=== PATIENT | female | born 1990 | race American Indian/Alaskan Native ===

== ENCOUNTER 2017-09-21 15:03 | Emergency (ER) | payer MEDICAID ==
[2017-09-21 15:04] VITALS: BMI 22.8
[2017-09-21] MEDS ORDERED: Sodium Chloride 0.9% 1,000 ML IV ONE (15:51)
--- NOTE | 2017-09-21 16:02 | C.PDOC ---
History Of Present Illness 26 y/o female currently presents to ED with c/o low abdominal "cramping" pain and vaginal bleeding "for awhile". Patient denies fever, chills , dysuria, back pain or any other complaints at this time. Time Seen by Provider: 09/21/17 15:47 Chief Complaint (Nursing): Female Genitourinary History Per: Patient History/Exam Limitations: no limitations Onset/Duration Of Symptoms: Days Current Symptoms Are (Timing): Still Present Quality Of Discomfort: Cramping Past Medical History Reviewed: Historical Data, Nursing Documentation, Vital Signs Vital Signs: Last Vital Signs Temp 97.8 F 09/21/17 19:22 Pulse 84 09/21/17 19:22 Resp 14 09/21/17 19:22 BP 110/80 09/21/17 19:22 Pulse Ox 98 09/21/17 19:22 - Medical History PMH: No Chronic Diseases Surgical History: No Surg Hx Family History: States: No Known Family Hx - Social History Hx Tobacco Use: No Hx Alcohol Use: No Hx Substance Use: No - Immunization History Hx Tetanus Toxoid Vaccination: Yes Hx Influenza Vaccination: Yes Hx Pneumococcal Vaccination: No Review Of Systems Constitutional: Negative for: Fever, Chills Gastrointestinal: Positive for: Abdominal Pain. Negative for: Nausea, Vomiting Genitourinary: Positive for: Vaginal Bleeding. Negative for: Dysuria Skin: Negative for: Rash Physical Exam - Physical Exam Appears: Non-toxic, No Acute Distress Skin: Warm, Dry, No Rash Head: Atraumatic, Normacephalic Eye(s): bilateral: Normal Inspection Oral Mucosa: Moist Neck: Normal ROM, Supple Cardiovascular: Rhythm Regular Respiratory: Normal Breath Sounds, No Rales, No Rhonchi, No Wheezing Gastrointestinal/Abdominal: Tenderness (Suprapubic), No Guarding, No Rebound, Other (Gravid abdomen) Back: No CVA Tenderness Neurological/Psych: Oriented x3, Normal Speech, Normal Cognition ED Course And Treatment - Laboratory Results Result Diagrams: 09/21/17 17:17 09/21/17 17:17 O2 Sat by Pulse Oximetry: 100 (RA) Pulse Ox Interpretation: Normal Medical Decision Making Medical Decision Making: ro ectopic vs ab. labs neg. urine with wbc, antibiotics given. iup confirmed. pt rh(+).. symptoms improved. advise outpt fu. Disposition - Disposition Referrals: [facility] [Outside] [facility] [Outside] [facility] [Outside] Disposition: HOME/ ROUTINE Disposition Time: 07:00 Condition: STABLE Additional Instructions: follow up with your doctor. return to er with worsening symptoms or concerns. Prescriptions: Cefpodoxime [Vantin] 100 mg PO BID #14 tab Instructions: Threatened Miscarriage, Asymptomatic Bacteriuria Forms: [facility] ([place]) - Clinical Impression Clinical Impression: Threatened miscarriage - Scribe Statement The provider has reviewed the documentation as recorded by the Briceibodette Juares All medical record entries made by the Briceibodette were at my direction and personally dictated by me. I have reviewed the chart and agree that the record accurately reflects my personal performance of the history, physical exam, medical decision making, and the department course for this patient. I have also personally directed, reviewed, and agree with the discharge instructions and disposition.
[2017-09-21] MEDS ORDERED: Sodium Chloride 0.9% 1,000 ML ONE (16:59)
[2017-09-21 17:27] LABS: BASO # 0.1 K/uL (0.0-0.2); BASO % 0.6 % (0.0-2.0); EOS # 0.3 K/uL (0.0-0.7); EOS % 3.1 % (0.0-4.0); HEMOGLOBIN 12.3 g/dL (11.0-16.0); LYMPH % 21.9 % (20.0-40.0); MEAN CORPUSCULAR HEMOGLOBIN 28.8 pg (27.0-31.0); MEAN CORPUSCULAR HGB CONC 33.9 g/dL (33.0-37.0); MEAN PLATELET VOLUME 8.7 fL (7.2-11.7); MONO # 0.6 K/uL (0.0-0.8); MONO % 6.6 % (0.0-10.0); NEUT # 6.2 K/uL (1.8-7.0); NEUT % 67.8 % (50.0-75.0); NRBC % 0.1 % (0.0-2.0); RBC 4.28 Mil/uL (3.80-5.20); RED CELL DISTRIBUTION WIDTH 12.5 % (11.5-14.5); WHITE BLOOD COUNT 9.1 K/uL (4.8-10.8)
[2017-09-21 17:35] LABS: PROTHROMBIN TIME 10.5 SECONDS (9.7-12.2)
--- NOTE | 2017-09-21 17:45 | US ---
Date of service: 09/21/2017 PROCEDURE: OB Pelvic Ultrasound HISTORY: abd pain and preg LMP: 06/07/2017 COMPARISON: None available. FINDINGS: UTERUS: Placenta: Fundal. Small venous [place]. Presentation: Cephalic. BPD: 3.0 cm compatible with estimated gestational age of 15 weeks, 4 days. HC: 11.4 cm compatible with estimated gestational age of 14 weeks, 4 days. AC: 9.5 cm compatible with estimated gestational age of 15 weeks, 4 days. FL: 1.7 cm compatible with estimated gestational age of 15 weeks, 1 day. Heart rate: 152 bpm. age (Ultrasound estimated): 15 weeks, 3 days Megan-gestational hemorrhage: None. Date of delivery (Ultrasound estimated) : 03/12/2018 Estimated weight 122.6 grams 18.4 grams (4 ounces 1 ounce) CERVIX: Measures 4.1 cm. Long and closed. No cervical abnormality seen. FREE FLUID: None. OTHER FINDINGS: None. IMPRESSION: Single live intrauterine gestation with average ultrasound age of 15 weeks, 3 days. heart rate 152 beats per minute. Cervix long and closed.
[2017-09-21 18:08] LABS: ALB/GLOB RATIO 1.1 (1.0-2.1); ALBUMIN 3.8 g/dL (3.5-5.0); ALT/SGPT 22 U/L (9-52); AST/SGOT 23 U/L (14-36); BLOOD UREA NITROGEN 11 mg/dL (7-17); CALCIUM 8.9 mg/dl (8.6-10.4); GFR AFRICAN-AMERICAN > 60; GFR NON-AFRICAN AMERICAN > 60
[2017-09-21 18:41] LABS: SQUAMOUS EPITHIAL 2 /hpf (0-5); URINE BILIRUBIN NEGATIVE (NEGATIVE); URINE BLOOD NEGATIVE (NEGATIVE); URINE CLARITY Clear (Clear); URINE COLOR Straw (YELLOW); URINE GLUCOSE (UA) NORMAL (Normal); URINE LEUKOCYTE ESTERASE 1+ Leu/uL (Negative); URINE PROTEIN NEGATIVE (NEGATIVE); URINE UROBILINOGEN NORMAL mg/dL (0.2-1.0)
[2017-09-21 19:23] VITALS: BP 110/80; PULSE 84; RESP 14; TEMP 97.8
[2017-09-21 20:20] VITALS: O2SAT 100
== END 2017-09-21 19:23 | disposition home or self-care (01) ==
LOC: C.ER 15:03
DX: O20.0 Threatened abortion (principal); Z3A.15 15 weeks gestation of pregnancy
CPT/HCPCS: 76815; 80053; 81001; 84702; 85025; 85610; 85730; 86850; 86900; 96360; 99285; J7030

== ENCOUNTER 2018-03-07 16:00 | Inpatient (IN) | payer MEDICAID ==
[2018-03-07 18:41] LABS: BASO % 0.3 % (0.0-2.0); EOS # 0.1 K/uL (0.0-0.7); EOS % 1.3 % (0.0-4.0); LYMPH # 1.7 K/uL (1.0-4.3); LYMPH % 17.1 % (20.0-40.0); MEAN CORPUSCULAR HEMOGLOBIN 29.9 pg (27.0-31.0); MEAN CORPUSCULAR HGB CONC 33.6 g/dL (33.0-37.0); MEAN PLATELET VOLUME 8.8 fL (7.2-11.7); MONO # 0.8 K/uL (0.0-0.8); MONO % 7.8 % (0.0-10.0); NEUT # 7.1 K/uL (1.8-7.0); NEUT % 73.5 % (50.0-75.0); RED CELL DISTRIBUTION WIDTH 14.2 % (11.5-14.5); WHITE BLOOD COUNT 9.7 K/uL (4.8-10.8)
[2018-03-07 18:49] LABS: SQUAMOUS EPITHIAL 2 /hpf (0-5); URINE BACTERIA RARE (<OCC); URINE BILIRUBIN NEGATIVE (NEGATIVE); URINE BLOOD NEGATIVE (NEGATIVE); URINE CLARITY Clear (Clear); URINE COLOR Yellow (YELLOW); URINE GLUCOSE (UA) NORMAL (Normal); URINE LEUKOCYTE ESTERASE 1+ Leu/uL (Negative); URINE PROTEIN NEGATIVE (NEGATIVE); URINE UROBILINOGEN NORMAL mg/dL (0.2-1.0)
[2018-03-07 18:50] LABS: INR 0.9; PROTHROMBIN TIME 10.2 SECONDS (9.7-12.2)
[2018-03-07 18:51] LABS: CREATININE, RANDOM URINE 81.9 mg/dL
[2018-03-07 19:17] LABS: ALB/GLOB RATIO 1.1 (1.0-2.1); ALBUMIN 3.5 g/dL (3.5-5.0); ALT/SGPT 25 U/L (9-52); AST/SGOT 26 U/L (14-36); BLOOD UREA NITROGEN 6 mg/dL (7-17); CALCIUM 8.9 mg/dl (8.6-10.4); GFR NON-AFRICAN AMERICAN > 60
[2018-03-08] MEDS: Lactated Ringer's 1,000 ML IV SCH ×3 (00:15→21:53)
--- NOTE | 2018-03-08 00:50 | OBHP ---
Datetime: 03/07/2018 17:45 IP Adm Impression: Term, intrauterine ; No Active Labor IP Admit Plan: Admit to unit; Observation/Evaluation Admit Comment, IP Provider: A 27 yo female at 39.3 weeks gestation presented to the [facility] at the recommendation of her [email or web address] doctor due to vaginal spotting and elevated blood pre ssures. Patient states she is having minimal abdominal pain. Patient confirmed movement, vagina l spotting starting last night, and white discharge present for the last two weeks. Patient denies co ntractions, nausea, vomiting, headache, and vision changes. PMHx: hypothyroidism during current PSHx: left salpingectomy 04/15 for an ectopic Allergies: NKDA SocialHx: denies alcohol, tobacco, recreational drug use Meds: vitamins GynHx: LMP 05/28/17; THADDEUS 03/11/18 by first trimester US;Hx of 2 TOP's and 1 ectopic. menarche age 9 ; cycle 28 days, 5-6 days menstruation, normal bleeding; patient did not state but records c onfirmed chlamydia/gonorrhea 2011 and chlamydia 2013 Assessment: 27 year old female [id number] at 38 weeks gestation presenting with elevated blood press ure and vaginal spotting; GBS positive NST Reactive Irregular contractions Plan: PIH labs, continuous monitoring, induction of labor if positive for pre-eclampsia, GBS prophylaxis Pelvic Type - PN: Adequate Extremities - PN: Normal Abdomen - PN: Normal Back - PN: Normal Breast - PN: Not Done Lungs - PN: Normal Heart - PN: Normal Thyroid - PN: Normal Neurologic - PN: Normal HEENT - PN: Normal General - PN: Normal Presentation-Admit: Vertex FHR - Baseline A Provider: 160 Membranes, Provider: Intact Contraction Comments Provider: irregular Comments, ACOG Physical Exam: as per above Gestation - Est Wks by US: 38.0 IP Hx Assessment: The History has been Reviewed and is Current EGA AdmitDate IP: 39.3 Vital Signs Provider: Reviewed Vital Signs Provider Details: elevated blood pressure IP Chief Complaint: Signs/Symptoms Gestational HTN; Vaginal bleeding; Other NICHD Variability Prov Fetus A: Moderate 6-25bpm NICHD Accel Fetus A IP Provider: 10X10 FHR Category Provider Fetus A: Category I NICHD Decel Fetus A IP Provider: None Dilatation, Provider: 2 Effacement, Provider: 80 Station, Provider: -3 Genitourinary Exam: Normal DTRs - PN: Normal
--- NOTE | 2018-03-08 01:02 | OBADHP ---
Datetime: 03/07/2018 17:45 Admit Comment, IP Provider: A 27 yo female at 39.3 weeks gestation presented to the [facility] at the recommendation of her [facility] doctor due to vaginal spotting and elevated blood pre ssures. Patient states she is having minimal abdominal pain. Patient confirmed movement, vagina l spotting starting last night, and white discharge present for the last two weeks. Patient denies co ntractions, nausea, vomiting, headache, and vision changes. PMHx: hypothyroidism during current PSHx: left salpingectomy 04/15 for an ectopic Allergies: NKDA SocialHx: denies alcohol, tobacco, recreational drug use Meds: vitamins GynHx: LMP 05/28/17; THADDEUS 03/11/18 by first trimester US;Hx of 2 TOP's and 1 ectopic. menarche age 9 ; cycle 28 days, 5-6 days menstruation, normal bleeding; patient did not state but records c onfirmed chlamydia/gonorrhea 2011 and chlamydia 2013 Assessment: 27 year old female O31 at 39.4 weeks gestation presenting with elevated blood pre ssure and vaginal spotting; GBS positive NST Reactive Irregular contractions Plan: Continueous with elevated BP's a times although no RUSSELL, BV or EP PIH labs reviewed and mostly negative Continuous monitoring, US with BPP 8/8, EGA 03/11/18 Decided to admit for induction of labor for Gestational Hypertension GBS prophylaxis ordered Will give Cytotec po Anticipate vaginal delivery Pelvic Type - PN: Adequate Extremities - PN: Normal Abdomen - PN: Normal Back - PN: Normal Breast - PN: Not Done Lungs - PN: Normal Heart - PN: Normal Thyroid - PN: Normal Neurologic - PN: Normal HEENT - PN: Normal General - PN: Normal Presentation-Admit: Vertex FHR - Baseline A Provider: 160 Membranes, Provider: Intact Contraction Comments Provider: irregular Comments, ACOG Physical Exam: as per above Gestation - Est Wks by US: 38.0 IP Hx Assessment: The History has been Reviewed and is Current Vital Signs Provider: Reviewed Vital Signs Provider Details: elevated blood pressure IP Chief Complaint: Signs/Symptoms Gestational HTN; Vaginal bleeding; Other NICHD Variability Prov Fetus A: Moderate 6-25bpm NICHD Accel Fetus A IP Provider: 10X10 FHR Category Provider Fetus A: Category I NICHD Decel Fetus A IP Provider: None Dilatation, Provider: 2 Effacement, Provider: 80 Station, Provider: -3 Genitourinary Exam: Normal DTRs - PN: Normal EGA AdmitDate IP: 39.3 IP Adm Impression: Term, intrauterine ; No Active Labor IP Admit Plan: Admit to unit; Observation/Evaluation
[2018-03-08] MEDS ORDERED: Penicillin G 5 Million Unit Vial IVPB ONE (01:41)
[2018-03-08] MEDS: Penicillin G Potassium 2.5 MU in Dextrose 5% In Water 50 ML IV SCH ×2 (05:45→09:35)
--- NOTE | 2018-03-08 10:51 | US ---
Ob limited ultrasound/biophysical profile Indication: Pre-eclampsia Comparison: OB ultrasound performed 09/21/17 Technique: Real-time ultrasound was performed through the pelvis. Findings: There is a single living fetus in cephalic presentation. Amniotic fluid volume is within normal limits, WILLIE 11.9 cm. Fundal placenta with evidence of venous leak. The placenta is not previa. There are no adnexal masses or cysts evident. Cervical length measures 2.55 cm. Measurements and calculations: Fetus has a composite sonographic age of 39 weeks 2 days. This calculation is based on the biparietal diameter, head circumference, abdominal circumference, and femur length. Estimated heart rate 138.9 beats per min. Estimated weight 138.9 BPM. Biophysical profile: movements 2/2 breathing 2/2 tone 2/2 Amniotic fluid 2/2 Total score impression: 88 Impression: Single living fetus with a composite sonographic age of 39 weeks 2 days. Fundal placenta with evidence of venous leak. Estimated heart rate 138.9 beats per min. Biophysical profile of 8 out of 8. Preliminary impression was provided by [employer].
[2018-03-08] MEDS ORDERED: Bupivacaine HCl/FentaNYL Cit 100 ML EPI ONE (11:12)
--- NOTE | 2018-03-08 12:39 | OBPN ---
Datetime: 03/08/2018 12:36 IP Progress Impression: Rupture of membranes; Gest. HTN/PreEclampsia/Eclampsia IP Procedures: Sterile Vag Exam IP Progress Plan: Continue present management FHR - Baseline A Provider: 130 IP Progress Note Comment: Place pt on Lt lateral position with peanut ball Continue present management Anticipate Vital Signs Provider: Reviewed; Within Normal Limits Vital Signs Provider Details: VE: NICHD Accel Fetus A IP Provider: 15X15 FHR Category Provider Fetus A: Category II NICHD Variability Prov Fetus A: Moderate 6-25bpm NICHD Decel Fetus A IP Provider: Early Datetime: 03/07/2018 17:45 IP Informed Consent Obtain: Vaginal Delivery Membranes, Provider: Intact Contraction Comments Provider: irregular Gestation - Est Wks by US: 38.0 Presentation-Admit: Vertex Dilatation, Provider: 2 Effacement, Provider: 80 Station, Provider: -3
[2018-03-08] MEDS ORDERED: Lactated Ringer's 1,000 ML IV ONE (14:01)
[2018-03-08] MEDS ORDERED: Sodium Citrate/Citric Acid 15 ml Sol PO ONE (14:01)
[2018-03-08] MEDS ORDERED: ceFAZolin 1 gm FROZEN Premix 2 GM/100 ML ML IVPB ONE (14:06)
[2018-03-08] MEDS ORDERED: Oxytocin 20 units in LR 2,000 ML IV ONE (14:06)
[2018-03-08] MEDS ORDERED: Lidocaine 2% MPF (5 ml) Inj ONE (14:08)
[2018-03-08] MEDS ORDERED: Sodium Bicarbonate (8.4%) 50 Meq Syringe ONE (14:09)
[2018-03-08] MEDS ORDERED: EPINEPHrine 1 mg/ml (1:1000) Inj ONE (14:09)
--- NOTE | 2018-03-08 14:31 | OBPN ---
Datetime: 03/08/2018 14:27 IP Progress Impression: Arrest of dilatation/descent; Non-reassuring heart rate; Rupture of me mbranes; Gest. HTN/PreEclampsia/Eclampsia IP Informed Consent Obtain: Section Delivery Membranes, Provider: Ruptured Amniotic Fluid Color, Provider: Clear FHR - Baseline A Provider: 130 IP Progress Note Comment: Pt has not made any cervical changes. Swollen cervix with starting of capu t formation. Cat 2 tracing. Remote from delivery. Discuss risk and benifits of C section VS continue current management. Pt agress for delivery via c section. Informed consent obtained. NICHD Accel Fetus A IP Provider: 15X15 FHR Category Provider Fetus A: Category II NICHD Variability Prov Fetus A: Moderate 6-25bpm Dilatation, Provider: 5 Effacement, Provider: 80 Station, Provider: -2 NICHD Decel Fetus A IP Provider: Early; Variable Datetime: 03/08/2018 12:36 Contraction Comments Provider: 1-2 min
[2018-03-08] MEDS ORDERED: Morphine 1 mg/ml preservative-free Inj(Duramorph) ONE (14:59)
[2018-03-08] MEDS ORDERED: Oxytocin 10 Units/ml Inj ONE (15:00)
[2018-03-08] MEDS ORDERED: ceFAZolin 2 GM in Sodium Chloride 0.9% 100 ML IVPB ONE (15:00)
[2018-03-08] MEDS ORDERED: DiphenhydrAMINE 50 mg/ml Inj IVP PRN (15:04)
[2018-03-08] MEDS ORDERED: Lidocaine Hydrochloride 10 ML INJ ONE (15:15)
[2018-03-08] MEDS ORDERED: Midazolam 2 MG/2 ML VIAL ONE ×2 (15:27→15:29)
[2018-03-08] MEDS ORDERED: Oxytocin 30 UNIT 500 ML IV ONE (15:37)
[2018-03-08] MEDS ORDERED: Oxytocin 30 UNIT 30 UNITS/500 ML BAG IV ONE (16:15)
[2018-03-08 18:12] LABS: BASO % 0.2 % (0.0-2.0); EOS % 0.1 % (0.0-4.0); HEMOGLOBIN 11.9 g/dL (11.0-16.0); LYMPH # 0.9 K/uL (1.0-4.3); LYMPH % 6.3 % (20.0-40.0); MEAN CELL VOLUME 88.4 fL (81.0-99.0); MEAN CORPUSCULAR HEMOGLOBIN 29.3 pg (27.0-31.0); MEAN CORPUSCULAR HGB CONC 33.1 g/dL (33.0-37.0); MEAN PLATELET VOLUME 8.6 fL (7.2-11.7); MONO # 1.2 K/uL (0.0-0.8); MONO % 8.5 % (0.0-10.0); NEUT # 11.7 K/uL (1.8-7.0); NEUT % 84.9 % (50.0-75.0); PLATELET COUNT 175 K/uL (130-400); RBC 4.08 Mil/uL (3.80-5.20); WHITE BLOOD COUNT 13.8 K/uL (4.8-10.8)
[2018-03-08 18:33] LABS: ALB/GLOB RATIO 1.1 (1.0-2.1); ALBUMIN 2.9 g/dL (3.5-5.0); ALT/SGPT 25 U/L (9-52); AST/SGOT 33 U/L (14-36); BLOOD UREA NITROGEN 6 mg/dL (7-17); CALCIUM 8.8 mg/dl (8.6-10.4); GFR NON-AFRICAN AMERICAN > 60
[2018-03-08 18:55] LABS: BANDS 6 % (0-2); LYMPHOCYTE 5 % (20-40); MONOCYTE 7 % (0-10); NEUTROPHIL 82 % (50-75); TOTAL CELLS COUNTED 100
[2018-03-08 18:56] LABS: PLATELET ESTIMATE NORMAL (NORMAL)
--- NOTE | 2018-03-08 19:36 | DELATT ---
Datetime: 03/07/2018 16:21 Del Note Departure Status: Nursery Del Note Time: 30 Del Note Interventions: Assessment; Stimulation; Drying Del Note Reason for Attending: Section DEBBIE/NICU Del Atten Note Adm
[2018-03-09] MEDS: Oxycodone/Acetaminophen 5/325 mg Tab PO PRN ×5 (00:16→23:06)
[2018-03-09] MEDS: Lactated Ringer's 1,000 ML IV SCH (05:46)
--- NOTE | 2018-03-09 06:38 | OP ---
PROCEDURE DATE: 03/08/2018 SURGEON: Farzaneh Nathan MD SELLING UNDERWRITER SURGEON: Rod Meadows MD PREOPERATIVE DIAGNOSES: Arrest of dilatation, nonreassuring heart tracing remote from delivery. POSTOPERATIVE DIAGNOSES: Arrest of dilatation, nonreassuring heart tracing remote from delivery, hyperextended head, placenta delivered at right occiput posterior position, patient left occiput posterior position. ESTIMATED BLOOD LOSS: 825 mL. FINDINGS: Male with scores of 9 and 9 and weight is 7.14 ounces. DESCRIPTION OF PROCEDURE: After obtaining informed consent, the patient was brought to the operating room. The patient ensured epidural anesthesia was confirmed to be adequate. Then, the patient was prepped and draped in sterile fashion. After that, two Allis clamps were placed on either side of her previous incision and skin incision was made using the #1 scalpel removing the previous scar. Then, this was extended down to the fascia using the Bovie. Fascia in the midline was nicked with the Bovie, and this was externally fashion using the Bovie. Then, the fascia in the midline was grasped with two straight Candace in the midline and from the muscle using the Bovie. fascia. Then, peritoneum was entered bluntly. Then, the muscle was midline inferiorly. Then Luis was introduced performed using #2 scalpel. Then, uterine incision was made using #2 scalpel. Then, baby's head was grasped from the pelvis, was hyperextended and manual was performed to from the pelvis and the baby's head was delivered after that. No fluid contamination was noted at the time of the delivery. Cord was clamped and cut and the baby was transferred to the awaiting pediatricians. After that, placenta was delivered manually. Cord gas and cord blood was obtained prior to this. Uterus was exteriorized and cleared off all debris. The uterine incision was closed using 0 Vicryl. On the left side, there was an extension noted and this was also incision using the third suture. Then, the second suture was used to . After this, there were two bleeding sites noted on either side of the incision. This time, 0 Monocryl was used to achieve hemostasis. After this, on the right side there appeared to be previous salpingectomy site. There was bleeding noted. Then, two sutures were placed to achieve hemostasis. The posterior cul-de-sac was irrigated with saline. Then, hemostasis was confirmed again at the site of the previous salpingectomy site for further hemostasis and then the uterus was placed back in the pelvis. Then, hemostasis was confirmed at the incision site as well as salpingectomy site. Prior to this, Hemabate was given to achieve uterine firmness. The bladder was cleared off all debris after the packing was added. Again, hemostasis was confirmed. Clamps were removed and then the peritoneum was closed using 3-0 Vicryl. Muscle was approximated using 3-0 Vicryl. The fascia was approximated using 1 Vicryl in running fashion. Then, subcuticular layer was approximated using 0 plain. Skin was approximated using 4-0 Monocryl. Sponge count and instrument count was corrected x2. Farzaneh Nathan MD
[2018-03-09 08:25] LABS: MEAN CELL VOLUME 88.6 fL (81.0-99.0); MEAN CORPUSCULAR HEMOGLOBIN 29.9 pg (27.0-31.0); MEAN CORPUSCULAR HGB CONC 33.7 g/dL (33.0-37.0); MEAN PLATELET VOLUME 8.6 fL (7.2-11.7); RBC 3.29 Mil/uL (3.80-5.20); RED CELL DISTRIBUTION WIDTH 14.3 % (11.5-14.5); WHITE BLOOD COUNT 18.1 K/uL (4.8-10.8)
[2018-03-09 08:37] LABS: HEMOGLOBIN 9.8 g/dL (11.0-16.0)
[2018-03-10] MEDS: Oxycodone/Acetaminophen 5/325 mg Tab PO PRN ×4 (03:31→23:45)
[2018-03-10] MEDS: Prenatal Multivit/Folic Acid/Iron Tab PO SCH (09:27)
--- NOTE | 2018-03-10 17:42 | OBPPN ---
Datetime: 03/09/2018 09:03 PP Pain Prov: Within normal limits PP Nausea Prov: Denies PP Flatus Prov: Yes PP BM Prov: No PP Heart Prov: Normal PP Abdomen/Uterus Prov: Normal PP Lochia Prov: Normal PP Vulva/Perineum Prov: Normal PP Comments Phys Exam Prov: Fundus, firm, below umbilicus and minimally tender PP Impression Prov: Normal progression; difficulties PP Plan Prov: Continue present management; consult PP Progress Note Prov: SUBJECTIVE: Patient was seen and examined at bedside this AM. She reports having some pain at the incision sit e but is otherwise feeling well. Percocet has helped control her pain. She reports lochia is decreasi ng. She is passing gas but has not had a BM yet. She has had some difficulty initiating breast feedin g and has been trying to latch every 2 hours. OBJECTIVE: Post- H/H 9.8/29.2, fundal height slightly above umbilicus, other normal exam findings as ab ove ASSESSEMENT: 27 year old s/p repeat c/s after trial of labor POD 1 PP H_H 9./.2 Acute Anemia secondary to acute blood loss/ Asymptomatic Stable and Satisfactory condition and recovery PLAN: Start feosol 325 mg BID Continue bowel regimen with colace 100 mg BID and senekot 17.2 mg HS Breast feeding consult Instructed patient to have babylatch every 2 hours, 20-30 minutes each breast Encouraged patient to increase po water intake Advance care Patient seen, examined, and plan discussed with Dr. Eyal Brown, DO, PGY-1 Pt seen and examined with Dr. Brown and all findings fully discussed with him and agreed with his notes IP PP Procedures: None Vital Signs Provider PP: Reviewed; Within Normal Limits
--- NOTE | 2018-03-10 17:49 | OBPPN ---
Datetime: 03/10/2018 13:15 PP Progress Note Prov: POD # 2 Stable and Satisfactory condition and recovery Ambulating, eating and OK Advance care Anticipate discharge home in AM
[2018-03-10 20:18] VITALS: RESP 18
[2018-03-11] MEDS ORDERED: Influenza Vaccine 60 mcg/0.5 mL SYR (4YR UP) IM ONE (08:59)
[2018-03-11 09:37] VITALS: O2SAT 100
[2018-03-11] MEDS: Prenatal Multivit/Folic Acid/Iron Tab PO SCH (10:18)
[2018-03-11] MEDS: Oxycodone/Acetaminophen 5/325 mg Tab PO PRN (10:19)
--- NOTE | 2018-03-11 12:31 | OBPPN ---
Datetime: 03/11/2018 12:28 PP Pain Prov: Within normal limits PP Flatus Prov: Yes PP BM Prov: Yes PP Heart Prov: Normal PP Lungs Prov: Normal PP Abdomen/Uterus Prov: Normal PP Lochia Prov: Normal PP C/S Incision Prov: Normal PP Impression Prov: Normal progression PP Plan Prov: Discharge PP Progress Note Prov: A/P: S/P C/S POD #3 - multigravida - pain controlled, +BM - BP WNL, Physical Exam WNL - f/u in 1 week for BP check and wound check Vital Signs Provider PP: Reviewed; Within Normal Limits
--- NOTE | 2018-03-11 12:33 | OBDCSUM ---
Datetime: 03/11/2018 12:30 Discharged to, Provider: Home Follow up at, Provider: clinic Disch Instr Activity: Normal activity Disch Instr Diet: Regular Discharge Instructions, Provider: Routine instructions given Discharge Diagnosis, Provider: Term Delivered; Preeclampsia Discharge Time: 03/11/2018 12:31 Follow up in weeks, Provider: 1 week
[2018-03-11 17:56] VITALS: BP 120/78; PULSE 87; TEMP 98.5
== END 2018-03-11 20:00 | disposition home or self-care (01) | DRG 372 ==
LOC: C.EROB 16:00 → C.4D 23:53 → C.4M 03-08 20:32
PROVIDERS: ADMIT Obstetrics & Gynecology; ATTEND Obstetrics & Gynecology
PROC: 10E0XZZ Delivery of Products of Conception, External Approach (ICD-10-PCS; principal; 2018-03-08)
DX: O76 Abnormality in fetal heart rate and rhythm complicating labor and delivery (principal); O14.94 Unspecified pre-eclampsia, complicating childbirth; Z3A.38 38 weeks gestation of pregnancy; Z37.0 Single live birth; E03.9 Hypothyroidism, unspecified; O99.284 Endocrine, nutritional and metabolic diseases complicating childbirth; O62.1 Secondary uterine inertia